=== PATIENT | male | born 1960 | race Caucasian/White ===

== ENCOUNTER 2024-05-21 08:36 | Outpatient (CLI) | payer MEDICARE, BC, SELFPAY ==
--- OUTSIDE RECORDS SUMMARY | 2024-05-21 08:42 | XMS_ITS | Continuity of Care Document ---
Author Organization [facility] Address [address] [address] [place] [address] Phone Care Team Providers Care Drafting Engineer Name Role Phone [facility] Marian ALEMAN Unavailable Unavailable Allergies, Adverse Reactions, Alerts Substance Reaction Status Criticality asparagus Active No Information verapamil Active No Information metoprolol Active No Information sildenafil Active No Information hydrocodone Active No Information erythromycin base Active No Informa tion Medications Medication Instructions Dosage Effective Dates (start - stop) Status Comments cholecalciferol (vitamin D3) 125 mcg (5,000 unit) capsule - Active amlodipine 10 mg tablet take 1 tablet by oral route every day 10 MG - Active cyclobenzaprine 10 mg tablet take 1 tablet by oral route 3 times every day 10 MG - Active epinephrine 0.3 mg/0.3 mL injection, auto-injector inject 0.3 milliliter by intramuscular route once as needed for anaphylaxis 0.3 MG - Active losartan 100 mg tablet take 1 tablet by oral route every day 100 MG - Active Zenpep 25,000 unit-79,000 unit-105,000 unit capsule,delayed release take 2 capsule by oral route 3 times every day with meals and 1 capsule with each snack swallowing whole. Do not crush, chew and/or divide. Max 8/day - Active pantoprazole 40 mg tablet,delayed release take 1 tablet by ORAL route every day 40 MG - Active Protonix 40 mg tablet,delayed release take 1 tablet (40MG) by ORAL route every day on empty stomach in the morning, 30 minutes before breakfast. You should eat something after 30-60 minutes. - Active pt is due for annual ov. fluconazole 200 mg tablet take 2 tablets PO on day one, then 1 tablet PO every day until finished - Active Creon 12,000-38,000-60,000 unit capsule,delayed release take 2 capsule by oral route 3 times every day with meals and 1 capsule with each snack 2.00 capsule - Active Zinc-220 50 mg zinc (220 mg) capsule - Active One-A-Day Men's 50 Plus 400 mcg-20 mcg-370 mcg tablet - Active acetaminophen ER 650 mg tablet,extended release take 2 tablet by oral route every 8 hours as needed swallowing whole with water. Do not break, crush, dissolve and/or chew. 1300 MG - Active albuterol sulfate 2.5 mg/3 mL (0.083 %) solution for nebulization inhale 3 milliliter by nebulization route 3 times every day 2.5 MG - Active Proair Digihaler 90 mcg/actuation aerosol powder breath act, sensor inhale 2 puff by inhalation route every 4 - 6 hours as needed 180 MCG - Active Excedrin Migraine 250 mg-250 mg-65 mg tablet - Active famotidine 20 mg tablet take 1 tablet by oral route 2 times every day 20 MG - Active doxycycline monohydrate 100 mg capsule take 1 capsule by oral route 2 times every day 100 MG - Active iron 325 mg (65 mg iron) tablet take 1 tablet by oral route 3 times every week 325 MG - Active krill oil 1,000 mg-170 mg-50 mg-80 mg capsule - Active glucosamine-chondroitin 500 mg-400 mg capsule - Active garlic 1,000 mg capsule - Ac tive rosuvastatin 20 mg tablet take 1 tablet by oral route 3 times a week - Active tizanidine 4 mg tablet take 1 tablet by oral route every day as needed not to exceed 3 doses in 24 hours 4 MG - Active topiramate 25 mg tablet take 2 tablet by oral route every day 50 MG - Active pantoprazole 40 mg tablet,delayed release take 1 tablet by ORAL route every day 40 MG - No Longer Active Zenpep 25,000 unit-79,000 unit-105,000 unit capsule,delayed release take 2 capsule by oral route 3 times every day with meals and 1 capsule with each snack swallowing whole. Do not crush, chew and/or divide. Max 8/day - No Longer Active hydrochlorothiazide 12.5 mg tablet take 1 tablet by oral route every day 12.5 MG - No Longer Active mexiletine 150 mg capsule take 2 capsule by oral route every 8 hours with food 300 MG - No Longer Active Procedures Procedure Date Offic/outpt E&m [facility] 2 24 Ugi Endo; W/bx 1/mx Level Iv-surg Path Gross/micro 23 Special Stains; Grp I Microorg 23 Offic/outpt E&m [facility] 2 23 Sigmoidoscopy Flex; W/bx 1/mx 3 Level Iv-surg Path Gross/micro 23 Offic/outpt E&m [facility] Routine Serum Collection Advance Directives Directive Yes / No Effective Date File Name No Information Encounters Encounter Description Practice Location Reason(s) For Visit Diagnoses Date Provider Providers Copied on Encounter Offic/outpt E&m [facility] Mod-[place] 2 [facility] BELKIS AL[address] [address], [place], [id number], [place] tel:[phone] [facility] GI Symptoms or Concerns (chief complaint) Gastroesophageal reflux disease, unspecified whether esophagitis presentPancreati c insufficiency 4 Rodríguez Fonseca. [address] [facility], [address], [id number], [place]. tel:[phone] Referring Provider: Referral Self, USE FOR SELF REFERRALS. [facility], [address] [address], [place], [place], [id number], [place] tel:[phone] [facility] No Information March-0 4 Luis Carlos Burgess. [address] [facility], [facility] [address] [place], [id number], [place]. tel:[phone] [facility], [address] [address], [place], [place], [id number], [place] tel:[phone] [facility] No Information Feb- 4 Luis Carlos Burgess. [address] [facility], [facility] [address], [place], [id number], [place]. tel:[phone] [facility], [address] [address], [place], [id number], [place] tel:[phone] [facility] No Information Jul- 3 Drew Buitrago. [address] [facility], [facility] [address], [place], [id number], [place]. tel:[phone] [facility], [address] [address], [place], [id number], [place] tel:[phone] [facility] Pancreatic cyst Sonny- 3 Drew Buitrago. [address] [facility], [facility] [address], [id number], [place]. tel:[phone] [facility], [address] [address], [place], [id number], [place] tel:[phone] [facility] No Information 3 Maxwell Guevara. [address] [facility], [facility] [address], [id number], [place]. tel:[phone] [facility], [address] [address], [place], [address], [place] tel:[phone] [facility] Hiatal herniaGastro-eso phageal reflux disease without esophagitisCandi rubio esophagitisDiaph ragmatic hernia without obstruction or gangrene 3 Maxwell Guevara. [address], [id number], [place]. tel:[phone] Referring Provider: Referral Self, USE FOR SELF REFERRALS. Offic/outpt E&m [facility]-[place] 2 [facility] BETY, [address] [address], [place], [place], [id number], [place] tel:[phone] [facility] GI Symptoms or Concerns (chief complaint) Abdominal bloatingChronic GERDDisease of pancreas, unspecified 3 Drew Buitrago. [address] [place] [address], [id number], [place]. tel:[phone] Referring Provider: Referral Self, USE FOR SELF REFERRALS. [facility]Y, [address] [address], [place], [place], [address], [place] tel:[phone] [facility] No Information 3 Drew Buitrago. [address], [id number], [place]. tel:[phone] [facility] BETY, [address] [address], [place], [place], [address], [place] tel:[phone] [facility] GI Symptoms or Concerns (chief complaint) Diverticulosis of colonInternal and external hemorrhoids without complicationHemo rrhage of anus and rectumHemorrhage of anus and rectumResidual hemorrhoidal skin tagsDvrtclos of lg int w/o perforation or abscess w/o bleeding 3 Isrrael Jimenes. [address], [id number], [place]. tel:[phone] Referring Provider: Referral Self, USE FOR SELF REFERRALS. Offic/outpt E&m [place] [facility]-[place] [facility] BETY, [address] [address], [place], [place], [id number], [place] tel:[phone] [facility] GI Symptoms or Concerns (chief complaint) Chronic diarrheaAbdomina l bloatingRectal bleeding Feb-0 3 Drew Buitrago. [address] [facility], [facility] [address], [place], [place], [id number], [place]. tel:[phone] Referring Provider: Referral Self, USE FOR SELF REFERRALS. [facility], [address] [address], [place], [place], [address], [place] tel:[phone] No Information Feb-0 3 No Information Referring Provider: Aimee Cade DO, [address] [place], [address]. tel:[phone] Family History Family Member Type Diagnosis Age At Onset Father Problem Stroke Mother Problem (finding) Diverticular disease Son Problem Asthma Mother Problem (finding) Pancreatitis Mother Problem Cancer, pancreas Mother Problem (finding) GERD Brother Problem (finding) GERD Sister Problem (finding) GERD Immunizations Vaccine Date Status Comments Afluria Qd administered Note: [facility] bi-directional interface ; Source: Other Registry Afluria Qd administered Note: [facility] bi-directional interface ; Source: Other Registry Afluria Qd administered Note: [facility] bi-directional interface ; Source: Other Registry Afluria Qd administered Note: [facility] bi-directional interface ; Source: Other Registry Afluria Qd administered Note: [facility] bi-directional interface ; Source: Other Registry zoster vaccine recombinant administered N ote: [facility] bi-directional interface ; Source: Other Registry zoster vaccine recombinant administered N ote: [facility] bi-directional interface ; Source: Other Registry Afluria Qd administered Note: [facility] bi-directional interface ; Source: Other Registry Afluria Qd administered Note: [facility] bi-directional interface ; Source: Other Registry Afluria Qd administered Note: [facility] bi-directional interface ; Source: Other Registry Afluria Qd administered Note: [facility] bi-directional interface ; Source: Other Registry zoster vaccine, live administered Note: [facility] bi-directional interface ; Source: Other Registry Afluria Qd administered Note: [facility] bi-directional interface ; Source: Other Registry tetanus toxoid, reduced diphtheria toxoid, and acellular pertussis vaccine, adsorbed administered Note: [facility] b i-directional interface ; Source: Other Registry Influenza, seasonal, injectable administe red Note: [facility] bi- directional interface ; Source: Other Registry Influenza, seasonal, injectable administe red Note: [facility] bi- directional interface ; Source: Other Registry Influenza, seasonal, injecta ble, preservative free administered Note: [facility] bi-direct ional interface ; Source: Other Registry influenza virus vaccine, unspecified formulation administered Note: [facility] bi-di rectional interface ; Source: Other Registry Engerix-B administered Note: [facility] bi-d irectional interface ; Source: Other Registry Influenza, seasonal, injectable administe red Note: [facility] bi- directional interface ; Source: Other Registry Engerix-B administered Note: [facility] bi-d irectional interface ; Source: Other Registry Engerix-B administered Note: [facility] bi-d irectional interface ; Source: Other Registry tetanus toxoid, reduced diphtheria toxoid, and acellular pertussis vaccine, adsorbed administered Note: [facility] b i-directional interface ; Source: Other Registry Influenza, seasonal, injectable administe red Note: [facility] bi- directional interface ; Source: Other Registry Influenza, seasonal, injectable administe red Note: [facility] bi- directional interface ; Source: Other Registry Payers Payer name Insurance type Covered constitution party ID Authoriza tion(s) Medicare NGS MB [id number] [facility] Medicare Supplement BL [id number] Social History Type Description Quantity Date Captured Comments Alcohol Use Details Unknown Caffeine Use Details Unknown Tobacco Use Status No Information Smoking Status No Information Sex Male Vital Signs Date / Time: Height Weight BMI Pulse Rate Blood Pressure Temperature Respiratory Rate Body Surface Area Head Circumference Head Circ. Percentile Wt./Sourav. Percentile BMI percentile Pulse Ox Inhaled Ox 7:28 AM 71.00 in 83.370 kg (183.80 lbs) 25.6 3 kg/m eter (2) 74 /min 134/73 mm[Hg] Chief Complaint And Reason For Visit From encounter dated '05/04/2024 07:45'. GI Symptoms or Concerns (chief complaint). Description: Keaton is a very pleasant 63 year old malewith medical history of acid reflux and small pancreatic cyst. He also has a history of frequent diarrhea.Patient was last seen in clinic by Dr. Russell in March of 2023. At this time, patient was seen for follow up regarding his frequent diarrhea, and was started on Zenpep versus Creon for pancreaticinsufficiency. Patient had also noted that he was not taking a PPI for GERD, and that his symptoms were not well managed with sucralfate and famotidine, thus he was switched to pantoprazole.Prior work up for diarrhea includes.-negative celiac testing, normal fecal calprotectin-EGD at [facility] in January 2023 which showed diverticulitis, internal hemorrhoids, mildly tortuous colon, had flex sig with [facility] with normal biopsies in 2022-Pancreatic Lipase Low at 60 in 2022, as well as stool pH of 7.0 -MRI April 2023 showing pancreatic cyst, follow up MRCP in January 2024 demonstrated the cyst was stable, and no follow up was recommended by radiologyToday, patient notes that he is overall doing quite well. He has no symptoms of acid reflux or heart burn on the Pantoprazole daily. He has very rarediarrhea on the Zenpep. He notes that he sometimes stops taking the Zenpep, but then the next day will have diarrhea. He also is normally taking it twice a day, as he usually only has 2 meals per day. He has a history of smoking and of alcohol use, but no longer drinks or smokes cigarettes. Reason For Referral Reason For Referral No Information Plan Of Treatment Date Type Action Status Referral Ordered: EGD Appointment date/timeframe: 04/07/2023 ordered Referral Ordered: MRI Pancreas WITH Contrast Appointment date/timeframe: 04/30/2023 ordered Referral Ordered: MRCP Biliary/Pancreatic Ducts WITHOUT And WITH Contrast Appointment date/timeframe: 04/30/2023 ordered Referral Ordered: Flexible Sigmoidoscopy Appointment date/timeframe: 02/24/2023 ordered History Of Present Illness Encounter Date Complaint History Of Prese nt Illness GI Symptoms or Concerns Keaton is a very pleasant 63 year old male with medical history of acid reflux and small pancreatic cyst. He also has a history of frequent diarrhea.Patient was last seen in clinic by Dr. Russell in March of 2023. At this time, patient was seen for follow up regarding his frequent diarrhea, and was started on Zenpep versus Creon for pancreatic insufficiency. Patient had also noted that he was not taking a PPI for GERD, and that his symptoms were not well managed with sucralfate and famotidine, thus he was switched to pantoprazole.Prior work up for diarrhea includes.-negative celiac testing, normal fecal calprotectin-EGD at [facility] in January 2023 which showed diverticulitis, internal hemorrhoids, mildly tortuous colon, had flex sig with [facility] with normal biopsies in 2022-Pancreatic Lipase Low at 60 in 2022, as well as stool pH of 7.0 -MRI April 2023 showing pancreatic cyst, follow up MRCP in January 2024 demonstrated the cyst was stable, and no follow up was recommended by radiologyToday, patient notes that he is overall doing quite well. He has no symptoms of acid reflux or heart burn on the Pantoprazole daily. He has very rare diarrhea on the Zenpep. He notes that he sometimes stops taking the Zenpep, but then the next day will have diarrhea. He also is normally taking it twice a day, as he usually only has 2 meals per day. He has a history of smoking and of alcohol use, but no longer drinks or smokes cigarettes. GI Symptoms or Concerns 62-year- old male patient who presents for follow-up for chronic diarrhea ( 2-3 years). We initially saw the patient on 02/21/2023 when he reported having 3-5 bowel movements with urgency on daily basis. He did have a CT scan of the abdomen and pelvis more than 5 years ago that was done for evaluation of acholic stool, which was unremarkable. He did have a colonoscopy around January of [address] Owen at [facility], and this reported diverticulosis, small internal hemorrhoids, mildly tortuous colon. We referred him for a flexible sigmoidoscopy which was done on 02/24/2023, and random biopsies were normal. Celiac serology was normal, fecal calprotectin was normal, and his pancreatic lipase was low at 60. Stool pH was normal at 7.0. We started him on Creon, with resolution of his diarrhea. He reported having chills with the use of Creon therefore he decreased it to 1 capsule with meals. Stool testing for infection was unremarkable. He reports that he did have a severe pancreatic infection in early with no details available. He also mentioned that he smoked about 1.5 pack per day between 1998 and 2006. He also mentioned drinking 2-3 beers a day between 1994 and 1999. Mother with history of pancreatic cancer. Sister with history of pancreatic problem. Denies constitutional symptoms. Patient reports that he has had chronic GERD that has been poorly controlled with sucralfate and famotidine. He was not trialed on PPI in the past. He reports that his last EGD was more than 10 years ago. No dysphagia or odynophagia. GI Symptoms or Concerns GI Symptoms or Concerns Keaton is a 62-year-old male patient who was referred for consultation by Dr. Aimee Cade for evaluation of chronic diarrhea and hematochezia. The patient reports that he was in his usual state of health until 2 years ago when he started to have diarrhea. He reports 3 to 5 bowel movements a day, light brown in color, with intermittent urgency. He did have a CT scan of the abdomen and pelvis more than 5 years ago, which I was able to find on his records in [facility], and that was done to evaluate for acholic stools, and that was unremarkable. He reports that he did have a colonoscopy within the past month with Dr. Owen at [facility], and he was told that he has nothing. On the review of the report of colonoscopy at [facility], it was noted that he has diverticulosis, small internal hemorrhoids, mildly tortuous colon, otherwise unremarkable exam.He reports daily bloating symptoms, he reports that he takes doxycycline on a daily basis for the past 4 years for rosacea. Denies any new Functional Status Date Functional Assessmen t No Information Medications Administered Medication Instructions Dosage Effective Dates (start - stop) Status Comments pantoprazole 40 mg tablet,delayed release take 1 tablet by ORAL route every day 40 MG - No Longer Active Instructions Date Instruction Additional Infor dilcia It was a pleasure to meet you!-I have sent in years refills of Zenpep and Pantoprazole -Please call if any questions or concerns, but then follow up in one year for refillsPlease feel free to reach out to me through the patient portal, or via my patient coordinator, Abbey @ [phone] ext. [phone] Related to Pancreatic insufficiency Diverticulosis/Diverticulitis Re lated to Diverticulosis of colon Hemorrhoids (External) Related t o Diverticulosis of colon Hemorrhoids (Internal) Related t o Diverticulosis of colon High Fiber Diet Related to Diver ticulosis of colon 1. Blood tests for c eliac disease today.2. Stool testing for calprotectin, pH, pancreatic elastase, and infectious workup.3. Refer for flexible sigmoidoscopy with biopsies to rule out microscopic colitis and to evaluate for the source of bleeding, specifically with internal or external hemorrhoids.4. Follow up in 1 month. We will consider further testing including upper endoscopy and capsule endoscopy.5. Given recommendations for low fructose diet to trial.6. Less likely SIBO as he is on daily doxycycline.7. He has follow up with Neurology next week. Advised to discuss if there is any other option for management of the migraines given his chronic Excedrin use.I spent a total of 60 minutes in reviewing outside records, care coordination, test ordering, [id number] clinical encounter, and dictation. Related to Chronic diarrhea Fructose Intolerance Diet Relate d to Abdominal bloating Assessments Type Assessment Date assessment Gastroesophageal ref lux disease, unspecified whether esophagitis present assessment Pancreatic insufficiency 2023 impression 63 year old male wit h medical history of acid reflux and small pancreatic cyst. He also has a history of frequent diarrhea.History of Pancreatic Insufficiency/Hx of Pancreatic Cyst:Diarrhea resolved after starting Zenpep. He has tried to wean off of this, but does notice that the diarrhea returns shortly after stopping. No further work up needed, per radiology for pancreatic cyst based on MRCP in January 2024. Refills for one year of Zenpep.Hx of GERD: After starting daily PPI in 2022 (versus on H 2 [place]) his symptoms of acid reflux and heartburn have resolved. Patient had a colonoscopy with [facility] in 2022, as well as a flex sig with [facility] (with biopsies) that year as well. Normal other than diverticulosis, small internal hemorrhoid, and mildly tortuous colon. Recall would be in 10 years. GERD: Patient Care Teams Name Effective Dates (start - stop) Status Members No Information
--- OUTSIDE RECORDS SUMMARY | 2024-05-21 08:42 | XMS_ITS | Clinical Summary ---
Author Organization [employer] [facility] Address [place], [place] [address] Care Team Providers Care Clinical Exercise Specialist Name Role Phone Mason Owen MD Unavailable [phone] Huber Martinez MD Unavailable [phone] Yessica Zelaya NP Unavailable Aimee Cade DO Primary Care Provider Ciro Funez MD Unavailable Allergies Active Allergy Reactions Criticality Noted Date Comments Asparagus Anaphylaxis,Vomiting High 08/14/2023 Erythromycin Rash Hydrocodone *Unknown Low 09/21/2019 Metoprolol Chest Pain,Hypertension,Wheez ing 03/14/2011 BP got up to 298/160 per pt. Sildenafil Hyperglycemia 01/15/2007 Verapamil Other - Describe In Comment Field 10/15/2016 Hypertensive response Hydrocodone-Acetaminop hen Itching,Insomnia Medications Medication Sig Dispensed Refills Start Date End Date Status medication order composerIndications :DDD (degenerative disc disease), cervical,Cervical myofascial pain syndrome TENS unit : Cervical pain & thoracic pain. D.D.D.; history of poly trauma. 1 Device 7 Active albuterol (PROVENTIL) 0.083 % neb solutionIndications :Mild intermittent asthma without complication,Bronch iectasis without complication (HC) Inhale 3 mL via a nebulizer every 4 hours if needed. 2 box 5 0 Active NebulizerIndication s:Mild intermittent asthma without complication,Bronch iectasis without complication (HC) Nebulizer, disposable neb kit. Frequency of use: Every 4 hours as needed, Medication: Albuterol, length of need:99 months 1 Device 0 Active topiramate (TOPAMAX) 25 mg tabletIndications:M igraine with aura, not intractable, without status migrainosus Take 2 tablets by mouth 2 times daily. 0 0 Active acetaminophen SR (Tylenol 8 Hour) 650 mg Extended-Release tabletIndications:G eneralized osteoarthritis,Prim franklyn osteoarthritis of both knees Take 2 Tablets (1,300 mg) by mouth every 8 hours if needed. Max acetaminophen dose: 4000mg in 24 hrs. 0 1 Active albuterol HFA (PRO-AIR; VENTOLIN; PROVENTIL) 90 mcg/actuation inhalerIndications: Cough,Bronchitis Inhale 1-2 Puffs by mouth every 4 hours if needed (cough). 1 Each 2 Active Zenpep 25,000-79,000- 105,000 unit cpDR 3 Active losartan (COZAAR) 100 mg tabletIndications:H TN (hypertension) Take 1 Tablet (100 mg) by mouth once daily. 90 Tablet 3 3 Active EPINEPHrine (EpiPen) 0.3 mg/0.3 mL auto-injectorIndica tions:Food allergy Inject 0.3 mg (1 Pen) intramuscular each time if needed for Allergic Reaction. 2 Each 3 3 Active cyclobenzaprine (FLEXERIL) 10 mg tabletIndications:C hronic midline thoracic back pain,Muscle spasm TAKE ONE TABLET BY MOUTH THREE TIMES A DAY NEEDED FOR MUSCLE SPASMS 90 Tablet 3 Active amLODIPine (NORVASC) 10 mg tabletIndications:H TN (hypertension) Take 1 Tablet (10 mg) by mouth once daily. 90 Tablet 3 4 Active famotidine (PEPCID) 20 mg tabletIndications:G astroesophageal reflux disease with esophagitis,Acute gastric ulcer without hemorrhage or perforation TAKE ONE TO TWO TABLETS BY MOUTH EVERY DAY NEEDED 180 Tablet 1 4 Active pantoprazole (PROTONIX) 40 mg delayed-release tablet Take 40 mg by mouth once daily before a meal. 4 Active doxycycline monohydrate (MONODOX) 100 mg capsuleIndications: Acne rosacea TAKE ONE CAPSULE BY MOUTH TWICE DAILY 180 Capsule 2 4 Active rosuvastatin (CRESTOR) 20 mg tabletIndications:V BI (vertebrobasilar insufficiency) TAKE ONE TABLET BY MOUTH EVERY DAY WITH EVENING MEAL 90 Tablet 2 4 Active medication order composerIndications :Chronic fatigue OneADay Men's 50+ MVI - 1 capsule daily in AM Krill Oil 1200mg (krill oil 1200mg, phospholipids 230mg, omega-3 fatty acid 175mg, EPA 74ma, DHA 48mg, astaxanthin 240mg) - 1 softgel twice a day Liane Feerasorb 65mg - 1 tablet Turmeric Curcumin Complex 500mg (contains black pepper) - 1 capsule in the evening Jones Copper 2 mg - 1 tablet daily Jones Zinc Gluconate 50 mg - 1 capsule daily Jones Triple Magnesium Complex 400mg (magnesium oxide, citrate, aspartate) - 1 capsule daily once completed start Vital Nutrients Triple Mag 500mg: Daily Red [place] Garlic 1000 mg - 2 softgel twice a day [place] Glucosamine Chondroitin MSM & Tumeric 4050mg- BID Traditionals [place] Dispersing formula: 5 capsules Daily - prescribe through industrial order clerk for lung function CoQ10 200mg: Daily 4 Active cholecalciferol, Vitamin D3, 5,000 unit tab tabletIndications:V itamin D deficiency Take 5,000 IU once daily with food. 90 Tablet 1 4 Active metoclopramide HCl (Reglan) 10 mg tablet Take 0.5 Tablets (5 mg) by mouth every 6 hours if needed for Nausea/Vomiting. 4 Active cholecalciferol, Vitamin D3, 5,000 unit tab tabletIndications:V itamin D deficiency Take 10,000 IU (2 tablets) once daily with food x 6 weeks. Recheck vitamin D levels at that time and adjust supplement dose accordingly. This information will be sent through medical messaging. 90 Tablet 4 05/10/20 24 Discontinu ed(Reorder (E-cancel not sent)) Hospital, Clinic, or Other Facility Administered Medication Ordered Dose Route Frequency Start Date End Date Status ketorolac 15 mg injection (TORADOL)Indications:Acute intractable headache, unspecified headache type 15 mg IV ONE TIME 05/12/2024 05/12/2024 Ended ondansetron 4 mg injection (ZOFRAN)Indications:Acute intractable headache, unspecified headache type 4 mg IV ONE TIME 05/12/2024 05/12/2024 Ended Active Problems Problem Noted Date Diagnosed Date Pancreatic cyst 12/30/2023 Overview: Found on MRI pancreas April 2023 with [facility] Advised to repeat scan Oct 2023 Pancreatic insufficiency 12/30/2023 Foraminal stenosis of lumbar region 11/13/2022 Overview: Per 03/2022 MRI Neck pain, chronic 08/06/2021 Frequent PVCs 03/08/2021 Dyslipidemia 03/08/2021 PSVT (paroxysmal supraventricular tachycardia) 0 06/14/2020 Overview: Extended Holter monitor on 06/02/2020 Apical myocardial infarction 05/02/2020 Overview: On Lexiscan 05/02/20 Normal cardiac MRI on 06/06/2020 Chest pressure 04/20/2020 Weight loss 04/20/2020 Hypokalemia 04/20/2020 Chronic renal disease, stage 3, moderately decreased glomerular filtration rate (GFR) between 30-59 mL/min/1.73 square meter 04/20/2020 VBI (vertebrobasilar insufficiency) 07/20/2019 Generalized osteoarthritis 05/27/2019 Primary osteoarthritis of both knees 09/24/2018 Overview: 1994 left anterior cruciate ligament Surgery and several meniscal Surgeries on right knee. Previous injections. October 2018: Dr. Ge did bilateral Synvisc ONE injections. Chronic midline low back pain with bilateral sci atica 03/11/2018 Chronic maxillary sinusitis 06/02/2017 Insomnia, idiopathic 06/02/2017 Thyroid nodule 03/24/2017 Overview: Surgically removed - B9 H/O Meniere's disease 01/15/2017 Overview: assoc. w/ tinnitus. Lumbar facet arthropathy 10/15/2016 Overview: Multilevel per MRI from 06/02/15 Lumbar disc herniation 10/15/2016 Overview: Per MRI on 06/02/15 Mild intermittent asthma without complication Migraine with aura, not intr actable, without status migrainosus 04/19/2016 Chronic tension-type headache, not intractable 0 04/19/2016 Allergic rhinitis 04/19/2016 Rosacea 11/24/2015 Anxiety 10/20/2015 Moderate episode of recurrent major depressive d isorder 10/20/2015 [place] 04/25/2015 AHI-7, supine 27 05/18/2015 Foraminal stenosis of cervical region 04/28/2015 Cervical myofascial pain syndrome 04/28/2015 Vasomotor rhinitis 11/30/2014 GERD (gastroesophageal reflux disease) 5 Overview: EGD 11/2014 Reactive gastropathy Diverticulosis of colon (without mention of hemo rrhage) 01/26/2014 Overview: Colonoscopy 01/2014 diverticulosis, NSAID ileitis repeat in 10 years Bronchiectasis without complication 09/19/2010 Essential hypertension 08/21/2010 Screen for colon cancer 07/21/2009 Overview: Colonoscopy 07/2009 normal repeat in 10 years Colonoscopy 01/2014 diverticulosis repeat in 10 years Mixed hyperlipidemia 06/29/2009 Compression Fracture of 9th Thoracic Vertebra Variants of migraine, not el sewhere classified, without mention of intractable migraine without mention of status migrainosus 06/07/2008 Overview: With L hemiplegia Hemiplegia, unspecified, affecting unspecified s riya 06/03/2008 Overview: Due to migraine vriant-05/24 Closed fracture of dorsal (t horacic) vertebra without mention of spinal cord injury 01/05/2008 Overview: 2003 Calculus of kidney Scoliosis (and kyphoscoliosis), idiopathic Resolved Problems Problem Noted Date Diagnosed Date Resolved Date Need for hepatitis C screening test 09/06/2019 04/20/2020 Intractable chronic cluster headache 04/19/2016 09/06/2019 Gastric ulcer, acute 04/19/2016 020 DDD (degenerative disc disease), cervical 04/28/2015 04/20/2020 Facet arthritis of cervical region 04/28/2015 04/20/2020 Gastric ulcer, acute 01/24/2012 015 Overview: EGD 01/2012 superficial ulcers, H. Pylori negative DIABETES TYPE II WITHOUT COM PLICATIONS OR UNSPECIFIED 12/02/2002 02/28/2009 Overview: gone since he stopped Viagra Unspecified asthma(493.90) 0 04/20/2020 Pain in limb 04/20/2020 Overview: Meniscal tear-R Knee-2007 Pain in limb 04/20/2020 Overview: herniated lumbar disc with radiculopathy Encounters Date Type Department Care Team Description 05/14/2024 9:00 AM CDT Procedure Only [facility] [address] [facility] [address] [place] [address] Anahi Kelsey L Ac Acupuncture 05/12/2024 11:25 AM CDT Office Visit [facility] [address] [place] [address] Aimee Cade, DO ER Follow up (Fell down stairs 03/25/24 - loss of consciousness, L ear/hearing decline, headache L side, L eye talamantes constantly) 05/12/2024 Travel 05/11/2024 Telephone [facility] [address] [place] [address] Aimee Cade, DO Questions 05/10/2024 11:20 AM CDT - 05/10/2024 1:[address] [facility] [address] [place] [address] Kvng Gonzalez MD Injury of head, initial encounter (Primary Dx); Intractable headache, unspecified chronicity pattern, unspecified headache type Discharge Disposition: Home Self Care 05/10/2024 Travel 05/10/2024 Nurse Triage [facility] [address] [place] [address] Aimee Cade, DO Headache 05/10/2024 Refill [facility] [address] [place] [address] Karuna Mcdonough PA Refill Request (VITAMIN D3 [id number]) 05/06/2024 12:40 PM CDT Orders Only [facility] [address] [facility] [address] [place] [address] Lab (/) 05/06/2024 11:00 AM CDT Office Visit [facility] [address] [facility] [address] [place] [phone] Igor Momin MD Consult (Cough Evaluation) 05/05/2024 Travel 04/30/2024 9:00 AM CDT Procedure Only [facility] [address] [place] [address] [address] [place] [address] Anahi Kelsey L Ac Acupuncture 04/30/2024 Travel 04/16/2024 9:00 AM CDT Procedure Only [facility] [address] [place] [address] [address] [place] [address] Anahi Kelsey L Ac Acupuncture 04/02/2024 9:00 AM CDT Procedure Only [facility] [address] [place] [address] [address] [place] [address] Anahi Kelsey L Ac Acupuncture 03/31/2024 9:00 AM CDT Office Visit [facility] [address] [place] [address] Karuna Mcdonough PA Follow Up 03/31/2024 Travel 03/29/2024 Travel 03/26/2024 7:15 AM CDT Orders Only [facility] [address] [place] [address] [place], [place] Lab 03/25/2024 Travel 03/19/2024 9:30 AM CDT Procedure Only [facility] [address] [facility] [address] [place] [address] Anahi Kelsey L Ac Acupuncture 03/05/2024 9:00 AM CDT Procedure Only [facility] [address] [facility] [address] [place] [address] Anahi Kelsey L Ac Acupuncture 03/02/2024 10:00 AM CDT Office Visit [facility] [address] [facility] [address] [place] [phone] Huber Martinez MD Follow Up (in person/3 month follow-up per Dr. Martinez/Nisha PCP/no cards); Concerns (Patient denies CP, SOB and dizziness. Patient states that he has missing beat and will get some dizziness with it. ); Refill Request (See pending orders for refill requests. ) 03/02/2024 Travel 02/26/2024 Refill [facility] [address] [place] [address] Aimee aCde DO Refill Request (Rosuvastatin) from Last 3 Months Immunizations Name Administration Dates Next Due Hepatitis B (Adult) 10/24/2006,05/27/2006,2005 Influenza Virus, Unspecified 08/30/2009 Influenza, IIV3 (Age >=3 years) 08/23/20 15,10/01/2013,09/30/2012,2003,08/30/2004,09/06/2003,05/12/2002,1 ,09/17/1998,11/23/1997, 997,09/18/1996,09/04/1995,09/13/1994,,09/14/1992 Influenza, IIV4 08/16/2022,,09/08/2020,2018,09/14/2018,08/28/2017,09/11/2016,1 ,08/02/2014,08/03/2013 Pneumococcal Poly,23-Valent (Pneumovax) 09/18/1996 Td (Age >=7 Years) 12/17/1995 Tdap 08/03/2013,04/17/2006 Zoster (Shingrix-RZV, recombinant) 06/03/2018, Zoster (Zostavax-ZVL, live) 01/13/2014 Family History Medical History Relation Name Comments Stroke Father d 70 yo Other Maternal Grandfather stomach CA/pancreatitis Other Maternal Grandmother CVA and CA -unknown type Cancer Mother d at 88 pancrea tic CA Asthma Son Relation Name Status Comments Father Maternal Grandfather Maternal Grandmother Mother Son Social History Tobacco Use Types Packs/Day Years Used Date Smoking Tobacco: Former Cigarettes 1 7 0 07/21/2000 - 07/21/2007 Smokeless Tobacco: Never Tobacco Cessation:Counseling Given: Yes Alcohol Use Standard Drinks/Week Comments Yes 0 (1 standard drink = 0.6 oz pur e alcohol) very rarely PHQ-2 Answer Date Recorded PHQ-2 TOTAL SCORE 0 02/18/2023 Social Connections Answer Date Recorded Frequency of Communication with Friends and Fami ly Not on file 04/25/2024 Financial Resource Strain Answer Date R ecorded Difficulty of Paying Living Expenses 3 04/24/2023 Difficulty of Paying Living Expenses Not on file 04/24/2023 Food Insecurity Answer Date Recorded Worried About Running Out of Food in the Last Ye ar 1 04/24/2023 Transportation Needs Answer Date Record ed Lack of Transportation (Medical) 1 04/24/2023 Housing Stability Answer Date Recorded Unable to Pay for Housing in the Last Year 1 04/24/2023 Sex and Gender Information Value Date Recorded Sex Assigned at Not on file Gender Identity Not on file Sexual Orientation Not on file Obstetrics History Last Filed Vital Signs Vital Sign Reading Time Taken Comments Blood Pressure 119/78 05/12/2024 1:19 PM CDT Pulse 59 05/12/2024 1:19 PM CDT Temperature 36.7 ??C (98.1 ??F) 05/10/2024 11:32 AM C DT Respiratory Rate 20 05/10/2024 11:32 AM CDT Oxygen Saturation 98% 05/12/2024 11:38 AM CDT Inhaled Oxygen Concentration - - Weight 83 kg (183 lb) 05/12/2024 11:38 AM CDT Height 180.3 cm (5' 11) 05/10/2024 11:31 AM CDT Body Mass Index 25.52 05/10/2024 11:31 AM CDT Plan of Treatment Upcoming Encounters Date Type Department Care Team (Late st Contact Info) Description 05/26/2024 1:45 PM CDT Orders Only [facility] [address] [facility] [address] [place] 05/28/2024 9:00 AM CDT Procedure Only [facility] [address] [facility] [address] [place] [phone] Anahi Kelsey L [address] [facility] [place] [address] 05/31/2024 7:15 AM CDT Ancillary Procedure [facility] [address] [place] [address] 06/01/2024 9:40 AM CDT Office Visit [facility] [address] [address] Megha Bloom MD [address] [address] 06/02/2024 1:00 PM CDT Office Visit [facility] [address] [place] [address] Karuna Mcdonough PA [address] [place] [address] 06/04/2024 12:00 PM CDT Appointment [facility] [address] [place] [address] 06/11/2024 9:00 AM CDT Procedure Only [facility] [address] [facility] [address] [place] [phone] Anahi Kelsey, Kate Ac [address] [place] [address] 06/11/2024 12:55 PM CDT Office Visit [facility] [address] [place] [address] Aimee Cade, DO [address] [place] [address] 10/19/2024 12:30 PM [employer] Office Visit [facility] [address] [place] [phone] Igor Momin MD [address] [place] [address] Health Maintenance Due Date Last Done Comments COVID-19 vaccine series (#1) 1965 Pneumococcal series for age 65+ (2 of 2 - PCV) 09/18/1997 09/18/1996 Tetanus booster 08/03/2023 08/03/2013, 0611/2005, 12/17/1995 Medicare Wellness for age 65+ 2023 09/06/2019 Depression screening for age 12+ 02/19/2024 02/18/2023, 11/23/2020, 11/21/2020, Additional history exists Influenza for age 65+ 07/18/2024 08/16/2022 , 08/13/2021, 09/08/2020, Additional history exists BMI (ht and wt on same day) for age 18+ 05/06/2025 05/06/2024, 02/05/2024, 12/22/2023, Additional history exists Lipids for age 45-75 03/26/2029 03/26/2024, 02/18/2023, 11/13/2022, Additional history exists Colonoscopy through age 75 01/14/203301/14, 01/14/2023, 01/14/2023, Additional history exists Tdap Completed 08/03/2013, 04/17/2006 Zoster (shingles) series for age 50+ Completed 06/03/2018, 03/11/2018, 01/13/2014 HIV for age 15-65 Completed 04/20/2020, 01/10/2014 Hepatitis C screening for ag e 18-79 Completed 04/20/2020, 09/06/2019 AAA screening age 65-74 Completed 12/10/2023, 11/24 Goals Goal Patient Goal Type Associated Problems Recent Progress Patient-Stated? Author BLOOD PRESSURE - Maintains BP less than 130/80 Blood Pressure On track( 3:30 PM CDT) No Kia Rose, RN Note: 112/79, 120/76, 123/79 some of patient's blood pressure readings over the last couple of weeks. MIAN Khoury.....06/09/2020 3:31 PM Other - Free Text General On track( 3:33 PM CDT) Yes Kia Rose, RN Note: No issues during this phone visit regarding knee issues. MIAN Khoury.....06/09/2020 3:34 PM QUALITY OF LIFE - Patient will define what quality of life means to them General Not on track( 3:34 PM CDT) No Kia Rose RN Note: Patient is frustrated regarding lack of care, for recent health issues. Assisted patient in scheduling a OV with PCP to discuss further. Patient was agreeable to an OV. MIAN Khoury.....06/09/2020 3:35 PM Manage Stress, Depression, or Anxiety General Worsening( 3:32 PM CDT) No Kia Rose RN Note: Patient feels COVID has affected his mental/physical ability to receive the care he needs. MIAN Khoury.....06/09/2020 3:33 PM Procedures Procedure Name Priority Date/Time Associated Diagnosis Comments CT HEAD BRAIN WO STAT 05/10/2024 12:1 0 PM CDT IGG Routine 05/06/2024 11:45 AM CDT Pancreatic insufficiency Recurrent upper respiratory infection (URI) Cough, unspecified type Dyspnea, unspecified type Bronchiectasis without complication (HC) IMMUNOGLOBULIN E,IGE Routine 05/06/2024 11:45 AM CDT Pancreatic insufficiency Recurrent upper respiratory infection (URI) Cough, unspecified type Dyspnea, unspecified type Bronchiectasis without complication (HC) IGA Routine 05/06/2024 11:45 AM CDT Pancreatic insufficiency Recurrent upper respiratory infection (URI) Cough, unspecified type Dyspnea, unspecified type Bronchiectasis without complication (HC) IGM Routine 05/06/2024 11:45 AM CDT Pancreatic insufficiency Recurrent upper respiratory infection (URI) Cough, unspecified type Dyspnea, unspecified type Bronchiectasis without complication (HC) IGG SUBCLASSES(1-4) Routine 05/06/2024 1 1:45 AM CDT Pancreatic insufficiency Recurrent upper respiratory infection (URI) Cough, unspecified type Dyspnea, unspecified type Bronchiectasis without complication (HC) LIPID PANEL W REFLEX MEASURED LDL Routine 03/26/2024 7:10 AM CDT PSVT (paroxysmal supraventricular tachycardia) (HC) Primary hypertension VITAMIN D 25 (DEFICIENCY) Routine 03/26/2024 7:10 AM CDT Vitamin D deficiency CBC W PLT NO DIFF Routine 03/26/2024 7:1 0 AM CDT Rectal bleeding Normocytic anemia US ABD AORTA SCREENING Routine 12/10/2023 7:42 AM [employer] Screening for AAA (abdominal aortic aneurysm) COLONOSCOPY DIAGNOSTIC Routine 01/14/2023 2:50 PM [employer] Hematochezia ANTI HIV 1/2 Today 04/20/2020 4:08 PM CDT Weight loss ANTI HCV Today 04/20/2020 4:08 PM CDT Weight loss from Last 3 Months or Most Recently Relevant to Health Maintenance Results * CT HEAD BRAIN WO (05/10/2024 12:10 PM CDT) Anatomical Region Laterality Modality HEAD, BRAIN Computed Tomogra phy 05/10/2024 12:3 8 PM CDT Impressions 05/10/2024 12:38 PM CDT 1. Normal intracranial contents. 2. Mild scattered paranasal sinus mucosal thickening. Please note that all CT scans at this facility use dose modulation, iterative reconstruction, and/or weight-based dosing when appropriate to reduce radiation dose to as low as reasonably achievable. Dictated by Andreia Andujar MD @ 05/10/2024 12:38:53 PM (Electronically Signed) Narrative 05/10/2024 12:38 PM CDT For Patients: ??As a result of the Cures Act, medical imaging exams and procedure reports are released immediately into your electronic medical record. ??You may view this report before your referring provider. ??If you have questions, please contact your health care provider. INDICATION: Head injury with persistent left headache. COMPARISON: MR brain 07/16/2019, CT head 07/16/2019 TECHNIQUE: CT of the brain / head without intravenous contrast. Multiplanar axial, coronal, and sagittal reformats were reconstructed. FINDINGS: No intracranial hemorrhage. Normal appearance of the white matter. No acute or subacute cortically based infarct. No mass or mass effect. Normal ventricles. No skull fractures. No worrisome focal bone lesion. Mild scattered paranasal sinus mucosal thickening. Procedure Note Andreia Andujar MD - 05/10/2024 For Patients: As a result of the Cures Act, medical imagingexams and procedure reports are released immediately into your electronicmedical record. You may view this report before your referring provider.If you have questions, please contact your health care provider. INDICATION: Head injury with persistent left headache. COMPARISON: MR brain 07/16/2019, CT head 07/16/2019 TECHNIQUE: CT of the brain / head without intravenous contrast. Multiplanar axial,coronal, and sagittal reformats were reconstructed. FINDINGS: No intracranial hemorrhage. Normal appearance of the white matter. No acute or subacute corticallybased infarct. No mass or mass effect. Normal ventricles. No skull fractures. No worrisome focal bone lesion. Mild scattered paranasal sinus mucosal thickening. IMPRESSION: 1. Normal intracranial contents. 2. Mild scattered paranasal sinus mucosal thickening. Please note that all CT scans at this facility use dose modulation,iterative reconstruction, and/or weight-based dosing when appropriate toreduce radiation dose to as low as reasonably achievable. Dictated by Andreia Andujar MD @ 05/10/2024 12:38:53 PM (Electronically Signed) Kvng Gonzalez MD CT * IGG SUBCLASSES(1-4) (05/06/2024 11:45 AM CDT) IgG 758 603 - 1613 mg/dL 05/10/2024 7:07 PM CDT FOR ESOTERIC TESTING (CET) IgG Subclass 1 306 248 - 810 mg/dL 05/10/2024 7:[address] [facility] ESOTERIC TESTING (CET) IgG Subclass 2 262 130 - 555 mg/dL 05/10/2024 7:07 PM CDT FOR ESOTERIC TESTING (CET) IgG Subclass 3 37 15 - 102 mg/dL 05/10/2024 7:[address] [facility] ESOTERIC TESTING (CET) IgG Subclass 4 32 2 - 96 mg/dL 05/10/2024 7:[address] [facility] ESOTERIC TESTING (CET) Blood BLOOD SPECIMEN / Unknown Venipuncture / Unknown 05/06/2024 11:45 AM CDT 05/06/2024 11:45 AM CDT Narrative FOR ESOTERIC TESTING (CET) - 05/10/2024 7:07 PM CDT Performed at: ??01 - [address] ??[id number] Chlorobutadiene Scrubber Operator: Spike Sharma MD, Phone: ??[phone] Performed at: ??02 - [facility] [place] [address] [place], [place] ??[id number] Chlorobutadiene Scrubber Operator: Andre Ku MD, Phone: ??[phone] Igor Momin MD [facility] FOR ESOTERIC TEST[facility] (CET) [address] [place] [address], [place] * IGA (05/06/2024 11:45 AM CDT) IGA 96.22 84.50 - 499.00 mg/dL 05/07/2024 10:33 AM CDT [facility] Blood BLOOD SPECIMEN / Unknown Venipuncture / Unknown 05/06/2024 11:45 AM CDT 05/06/2024 11:45 AM CDT Igor Momin MD CHEMISTRY Performing Organization Address City/[facility]/ZIP Co de Phone Number [facility] [address] [phone], [place] * IGM (05/06/2024 11:45 AM CDT) IGM 42.59 35.00 - 242.00 mg/dL 05/07/2024 10:33 AM CDT [facility] Blood BLOOD SPECIMEN / Unknown Venipuncture / Unknown 05/06/2024 11:45 AM CDT 05/06/2024 11:45 AM CDT Igor Momin MD CHEMISTRY [facility] [address] [place] [address], [place] * IGG (05/06/2024 11:45 AM CDT) IGG 659.43 610.30 - 1,616.00 mg/dL 05/07/2024 10:33 AM CDT [facility] Blood BLOOD SPECIMEN / Unknown Venipuncture / Unknown 05/06/2024 11:45 AM CDT 05/06/2024 11:45 AM CDT Igor Momin MD CHEMISTRY Performing Organization Address City/[facility]/ZIP Co de Phone Number [facility] [address] [place] [address], * (ABNORMAL) IMMUNOGLOBULIN E,IGE (05/06/2024 11:45 AM CDT) IMMUNOGLOBULIN E (IGE) 4.2(L) 22.0 - 107.0 kU/L 05/07/2024 2:00 PM CDT [facility] Blood BLOOD SPECIMEN / Unknown Venipuncture / Unknown 05/06/2024 11:45 AM CDT 05/06/2024 11:45 AM CDT Igor Momin MD CHEMISTRY Performing Organization Address [facility] Co de Phone Number [facility] [address] [place] [address], * (ABNORMAL) LIPID PANEL W REFLEX MEASURED LDL (03/26/2024 7:10 AM CDT) CHOLESTEROL,TOTAL 112 100 - 199 mg/dL 03/26/2024 2:45 PM CDT [facility] Comment: Cholesterol, Total Reference Ranges Desirable <200 mg/dL Borderline 200-239 mg/dL High >=240 mg/dL TRIGLYCERIDES 99 <150 mg/dL 03/26/2024 2:45 PM CDT [facility] HDL CHOLESTEROL 40(L) >40 mg/dL 2:45 PM CDT [facility] NON-HDL CHOLESTEROL 72 <145 mg/dl 03/26/2024 2:45 PM CDT [facility] CHOL/HDL RATIO 2.80 <4.50 03/26/2024 2:45 PM CDT [facility] LDL CHOLESTEROL 52 <=130 mg/dL 03/26/2024 2:45 PM CDT [facility] VLDL CHOLESTEROL 20 <=30 mg/dL 03/26/2024 2:45 PM CDT [facility] PROVIDER ORDERED STATUS FASTING 03/26/2024 2:45 PM CDT [facility] Blood BLOOD SPECIMEN / Unknown Venipuncture / Unknown 03/26/2024 7:10 AM CDT 03/26/2024 7:11 AM CDT Huber Martinez MD CHEMISTRY Performing Organization Address [facility] Co de Phone Number [facility] [address] [place] [address], * VITAMIN D 25 (DEFICIENCY) (03/26/2024 7:10 AM CDT) VITAMIN D TOTAL 28.1 20.0 - 80.0 ng/mL 03/26/2024 2:45 PM CDT [facility] Blood BLOOD SPECIMEN / Unknown Venipuncture / Unknown 03/26/2024 7:10 AM CDT 03/26/2024 7:11 AM CDT Narrative [facility] - 03/26/2024 2:45 PM CDT ? Vitamin D Status Deficiency: ? <20 ng/mL Insufficiency: ?20-29 ng/mL Sufficiency: ?30-80 ng/mL Possible Toxicity: ??>80 ng/mL Based on [place] of Medicine recommendations Biotin supplements may cause clinically significant interference for this test assay. ??If interference is suspected, it is strongly recommended that biotin is discontinued for at least one week prior to retesting. Karuna ALBERT SEND OUTS Performing Organization Address [facility] Co de Phone Number [facility] [address] [place] [address], * (ABNORMAL) CBC W PLT NO DIFF (03/26/2024 7:10 AM CDT) WHITE BLOOD COUNT 7.0 4.5 - 11.0 thou/cu mm 03/26/2024 7:14 AM CDT [facility] RED BLOOD COUNT 4.41 4.30 - 5.90 mil/cu mm 03/26/2024 7:14 AM CDT [facility] HEMOGLOBIN 13.6 13.5 - 17.5 g/dL 03/26/2024 7:14 AM CDT [facility] HEMATOCRIT 39.3 37.0 - 53.0 % 03/26/2024 7:14 AM CDT [facility] MCV 89 80 - 100 fL 03/26/2024 7:14 AM CDT [facility] MCH 30.8 26.0 - 34.0 pg 03/26/2024 7:14 AM CDT [facility] MCHC 34.6 32.0 - 36.0 g/dL 03/26/2024 7:14 AM CDT [facility] RDW 14.4 11.5 - 15.5 % 03/26/2024 7:14 AM CDT [facility] PLATELET COUNT 220 140 - 440 thou/cu mm 03/26/2024 7:14 AM CDT [facility] MPV 11.6(H) 6.5 - 11.0 fL 03/26/2024 7:14 AM CDT [facility] Blood BLOOD SPECIMEN / Unknown Venipuncture / Unknown 03/26/2024 7:10 AM CDT 03/26/2024 7:11 AM CDT Aimee Cade DO HEMATOLOGY Performing Organization Address City/State/[facility] Co de Phone Number [facility] [address] [place] [address], * US ABD AORTA SCREENING (12/10/2023 7:42 AM [employer]) Anatomical Region Laterality Modality Abdomen, AORTA Ultrasound 12/10/2023 6:55 AM [employer] Narrative 12/10/2023 9:48 AM [employer] VASCULAR ULTRASOUND REPORT MARISABEL REAGAN Accession#: ?? [id number] : ?1960 ??Study Date: ?? 12/10/2023 6:55:25 AM Age: ?63 years ?? Tech: ? CSH/STEVENK Gender: M ?Referring MD: HUBER MARTINEZ Site: [facility] Study performed: ?Aorta Indication for study: AAA screening. Study Quality: ?Good TECHNIQUE: The abdominal aorta and iliac arteries were examined with duplex ultrasound, color-flow and spectral Doppler. Bypass grafts and/or stents if present are evaluated per exam protocol. Vessel size, peak systolic velocity (PSV) and velocity ratios if applicable, were obtained and documented at sites per exam protocol. IMPRESSION: 1. No evidence of abdominal aortic aneurysm. 2. No common iliac artery stenosis or aneurysm bilaterally. COMPARISON: No prior study available for comparison. FINDINGS: There is no evidence of abdominal aortic aneurysm. No common iliac artery stenosis or aneurysm bilaterally. MEASUREMENTS: + +--------+-------+ +---------+ ? TRV (cm) AP (cm) PSV (cm/s) Phasicity + +--------+-------+ +---------+ Suprarenal aorta ?2.20 ?? 2.10 ? 108 ? + +--------+-------+ +---------+ Juxtarenal aorta ?2.00 ?? 2.20 ? 126 ? + +--------+-------+ +---------+ Infrarenal aorta ?1.90 ?? 1.80 ? 132 ? + +--------+-------+ +---------+ Right common iliac ??1.30 ?? 1.30 ? 186 ? + +--------+-------+ +---------+ Left common iliac ??1.20 ?? 1.30 ? 115 ? + +--------+-------+ +---------+ Gerardo Tena MD. Electronically signed on 12/10/2023 9:48:18 AM This study was performed and interpreted by a service accredited by the Intersocietal Accreditation Commission (IAC/Vascular), www.intersocietal.org/vascular Report generated by [employer]. ??Final ?? Procedure Note Gerardo Tena MD - 12/10/2023 VASCULAR ULTRASOUND REPORT MARISABEL REAGAN : 1960 Study Date: 12/10/2023 6:55:25 AM Age: 63 years Tech: [employer]ANSON/KELLY Gender: M Referring MD: HUBER MARTINEZ Site: [facility] Study performed: Aorta Indication for study: AAA screening. Study Quality: Good TECHNIQUE: The abdominal aorta and iliac arteries were examined with duplexultrasound, color-flow and spectral Doppler. Bypass grafts and/or stentsif present are evaluated per exam protocol. Vessel size, peak systolicvelocity (PSV) and velocity ratios if applicable, were obtained anddocumented at sites per exam protocol. IMPRESSION: 1. No evidence of abdominal aortic aneurysm. 2. No common iliac artery stenosis or aneurysm bilaterally. COMPARISON: No prior study available for comparison. FINDINGS: There is no evidence of abdominal aortic aneurysm. No common iliac arterystenosis or aneurysm bilaterally. MEASUREMENTS: + +--------+-------+ +---------+ TRV (cm) AP (cm) PSV (cm/s) Phasicity + +--------+-------+ +---------+ Suprarenal aorta 2.20 2.10 108 + +--------+-------+ +---------+ Juxtarenal aorta 2.00 2.20 126 + +--------+-------+ +---------+ Infrarenal aorta 1.90 1.80 132 + +--------+-------+ +---------+ Right common iliac 1.30 1.30 186 + +--------+-------+ +---------+ Left common iliac 1.20 1.30 115 + +--------+-------+ +---------+ Gerardo Tena MD. Electronically signed on 12/10/2023 9:48:18 AM This study was performed and interpreted by a service accredited by theIntersocietal Accreditation Commission (IAC/Vascular),www.intersocietal.org/vascular Report generated by [employer]. Final Huber Martinez MD [place] * COLONOSCOPY (01/14/2023 2:29 PM [employer]) 01/14/2023 2:29 PM [employer] Narrative Transcriptions Mason Owen MD - 01/14/2023 4:21 PM CST Patient Name: Marisabel Reagan Procedure Date: 01/14/2023 Gender: Male Date of : 1960 Admit Type: Outpatient Procedure: Colonoscopy Proceduralist: Mason Owen MD , Janet Peralta (Nurse), Marisol Bauer (Nurse) Referring MD: Billy Mehta Indications/Pre-Op Diagnosis: Evaluation of unexplained GI bleeding presenting with Hematochezia, Lastcolonoscopy: January 2014 Medications: Fentanyl 200 micrograms IV, Midazolam 4 mgIV, The level of sedation administered wasmoderate Procedure Description: The patient had risks, benefits and alternatives explained to andgave informed consent. The patient had a stable cardiopulmonary status and judged an adequate candidate for conscious sedation. The PCF-H190L [id number] was passed through the anus and advanced to 8cm into the ileum. The colonoscopy was performed without difficulty. The patient tolerated the procedure well. The quality of the bowel preparation was good. The terminal ileum, ileocecal valve,appendiceal orifice, and rectum were photographed. Estimated Blood Loss & Specimen: Estimated blood loss: none. Specimen collected - Yes and sent to Laboratory Findings: The perianal and digital rectal examinations were normal. Scattered small and large-mouthed diverticula were found in thesigmoid colon and descending colon. The colon (entire examined portion) was moderately tortuous. A moderate amount of semi-liquid stool was found in the ascendingcolon and in the cecum, interfering with visualization. Lavage of the areawas performed using a large amount of sterile water, resulting inclearance with good visualization. Non-bleeding internal hemorrhoids were found. The hemorrhoids weresmall. Impressions/Post-Op Diagnosis: - Moderate diverticulosis in the sigmoid colon and in the descending colon. - Tortuous colon. - Stool in the ascending colon and in the cecum. - Non-bleeding internal hemorrhoids. - No specimens collected. Recommendation: - Patient has a contact number available for emergencies. The signsand symptoms of potential delayed complications were discussed with the patient. Return to normal activities tomorrow. Written discharge instructions were provided to the patient. - Resume previous diet. - Continue present medications. - Repeat colonoscopy in 10 years for screening purposes. - Use original regular Metamucil one teaspoon PO BID for 1 year. Moderate Sedation: A time out was performed before the procedure. Moderate (conscious) sedation was administered by the endoscopy nurse and supervised bythe endoscopist. The following parameters were monitored: oxygensaturation, heart rate, blood pressure, EKG, CO2, respiratory rate, adequacy of pulmonary ventilation and reponse to care. Please refer to the patient's medical record flowsheets and nursing notes for moderate sedation details. Total physician intraservice time was 35 minutes. Mason Owen MD 01/14/2023 4:21:03 PM This report has been signed electronically. Note Initiated On: 01/14/2023 2:29 PM Procedure Code(s): --- Professional --- 53749, Colonoscopy, flexible; diagnostic, including collection of specimen(s) bybrushing or washing, when performed (separateprocedure) Diagnosis Code(s): --- Professional --- K64.8, Other hemorrhoids K92.1, Melena (includes Hematochezia) K57.30, Diverticulosis of large intestine without perforation or abscess withoutbleeding Q43.8, Other specified congenitalmalformations of intestine CPT copyright 2020 [employer]. All rights reserved. The codes documented in this report are preliminary and upon certified medical coder reviewmay be revised to meet current compliance requirements. Scope In: 3:32:33 PM Scope Withdrawal Time 0 hours 10 minutes 45 seconds Scope Out: 4:05:36 PM Mason Owen MD PROCEDURE ORD * ANTI HCV (04/20/2020 4:08 PM CDT) HEPATITIS C ANTIBODY Non-React elvin Non-React elvin 04/24/2020 7:56 PM CDT [facility] Comment:Antibodies to HCV no t detected; does not exclude the possibility of exposure to HCV. Blood BLOOD SPECIMEN / Unknown Extra Tube / Unknown 04/20/2020 4:08 PM CDT 04/20/2020 4:19 PM CDT Billy Mehta MD [facility] [address] [place] [address], * ANTI HIV 1/2 (04/20/2020 4:08 PM CDT) HIV-1/HIV-2 ANTIBODY Non-Reacti ve Non-Reacti ve 04/24/2020 7:53 PM CDT [facility] Comment:HIV-1 p24 and HIV-1/ HIV-2 Ab not detected. Blood BLOOD SPECIMEN / Unknown Extra Tube / Unknown 04/20/2020 4:08 PM CDT 04/20/2020 4:19 PM CDT Billy Mehta MD SEND OUTS [facility] [address] [place] [address], from Last 3 Months or Most Recently Relevant to Health Maintenance Advance Directives * Full Code (Latest Code Status on File) Date Activated Date Inactivated Comments 12/19/2023 1:26 PM 12/19/2023 8:39 PM Question Answer Comments Code Status Discussion: Reviewed Preferences * Full Code Date Activated Date Inactivated Comments 03/08/2021 8:31 AM 03/08/2021 2:59 PM Question Answer Comments Code Status Discussion: Not Discussed * Full Code Date Activated Date Inactivated Comments 04/20/2020 7:01 PM 04/21/2020 3:05 PM * Full Code Date Activated Date Inactivated Comments 06/03/2008 12:50 AM 06/04/2008 4:55 PM Care Teams Clinical Exercise Specialist Relationship Specialty Start Date End Date Aimee Cade DO [address] [place] [address] PCP - General Family Practice 11/13/22 Mason Owen MD [address] [place] [address] Gastroenterology Gastroenterology 01/16/12 [place] [address] [place] [address] Consulting Physician Cardiovascular Disease 07/19/20 Yessica Zelaya NP [address] [place] [address] Consulting Physician Cardiology - Electrophysiology 12/24/21 Ciro Funez MD [address] [place] [address] Consulting Physician Cardiology - Electrophysiology 11/24/23
--- OUTSIDE RECORDS SUMMARY | 2024-05-21 08:42 | XMS_ITS | Continuity of Care Document ---
Author Organization Z [facility] Address [address] [place] [address] Phone Care Team Providers Care Shopper'S Aide Name Role Phone Unavailable Unavailable Unavailable Procedures Procedure Date Office/outpatient visit,[facility] 2010 X-ray exam of total spine Advance Directives Directive Yes / No Effective Date File Name No Information Encounters Encounter Description Practice Location Reason(s) For Visit Diagnoses Date Provider Providers Copied on Encounter Z [facility] [place], [address] [place] [address], [facility], tel:[phone] [facility] [place] No Information 7 1 No Information Office/outpat ient visit,[facility], [facility] [place], [address], [facility], tel:[phone] [place] [facility] [place] No Information [address] [facility] [place], [address], [id number], . tel:[phone] Family History Family Member Type Diagnosis Age At Onset No Information Payers Payer name Insurance type Covered constitution party ID Joycelyn vega(s) [employer] [id number] Social History Type Description Quantity Date Captured Comments Sex Male Smoking Status No Information Chief Complaint And Reason For Visit No Information Reason For Referral Reason For Referral No Information History Of Present Illness Encounter Date Complaint History Of Prese nt Illness No Information Functional Status Date Functional Assessmen t No Information Instructions Date Instruction Additional Infor mation No Information Assessments Type Assessment Date No Information Patient Care Teams Name Effective Dates (start - stop) Status Members No Information
--- NOTE | 2024-05-21 09:00 | CRLHL7_ITS ---
For Patients: As a result of the Century Cures Act, medical imaging exams and procedure reports are released immediately into your electronic medical record. You may view this report before your referring provider. If you have questions, please contact your health care provider. Indication: Bronchiectasis Technique: High-resolution noncontrast CT chest with supine inspiration/expiration images along with prone inspiration Please note that all CT scans at this facility use dose modulation, iterative reconstruction, and/or weight-based dosing when appropriate to reduce radiation dose to as low as reasonably achievable. Comparison: None Findings: Nonobstructing calculus within the mid left kidney measures 3 millimeters. Adrenal glands are normal. Spleen is unremarkable. Normal visualized pancreas, gallbladder and liver with an incidental subcentimeter cyst in the left hepatic lobe. No hiatal hernia. No mediastinal, hilar or axillary lymph node. No thoracic inlet lesion. Bronchiectasis is present within the left lower lobe. No peripheral fibrotic change or honeycombing. No airspace disease, pulmonary edema or pleural effusion. The small nodular density is present within the left lateral lung base measuring 4.7 millimeters. Small nodule within the right middle lobe is also present measuring 4.4 millimeters. Mild chronic wedging of T9. Mild diffuse air trapping noted. Impression: Left lower lobe bronchiectasis. Mild diffuse air trapping. No peripheral fibrosis. Small bilateral pulmonary nodules. Please note that all CT scans at this facility use dose modulation, iterative reconstruction, and/or weight-based dosing when appropriate to reduce radiation dose to as low as reasonably achievable. Dictated by Igor Ibanez MD @ 05/21/2024 10:09:25 AM (Electronically Signed)
== END 2024-05-21 08:37 | disposition home or self-care (01) ==
LOC: CT 08:40
PROVIDERS: PCP Family Medicine; Visit Provider Internal Medicine
DX: J47.9 Bronchiectasis, uncomplicated (principal); R91.8 Other nonspecific abnormal finding of lung field; K86.89 Other specified diseases of pancreas; J06.9 Acute upper respiratory infection, unspecified; R05.9 Cough, unspecified; R06.00 Dyspnea, unspecified
CPT/HCPCS: 71250

== ENCOUNTER 2024-07-22 10:30 | Outpatient (RCR) | payer MEDICARE, BC, SELFPAY | END 2024-11-19 23:59 | disposition home or self-care (01) | PROVIDERS: PCP Family Medicine; Visit Provider Family Medicine | DX: F07.81 Postconcussional syndrome (principal); Z74.09 Other reduced mobility; R26.81 Unsteadiness on feet; R29.898 Other symptoms and signs involving the musculoskeletal system; Z51.89 Encounter for other specified aftercare | CPT/HCPCS: 97110; 97140; 97162; 97165; 97535 ==

== ENCOUNTER 2025-03-08 14:51 | Outpatient (CLI) | payer MEDICARE, BC, SELFPAY | END 2025-03-08 14:52 | disposition home or self-care (01) | LOC: INJ CL 14:53 | PROVIDERS: PCP Family Medicine; Visit Provider Family Medicine | DX: M17.11 Unilateral primary osteoarthritis, right knee (principal) | CPT/HCPCS: 64454 ==

== ENCOUNTER 2025-03-29 12:16 | Outpatient (CLI) | payer MEDICARE, BC, SELFPAY | END 2025-03-29 12:17 | disposition home or self-care (01) | LOC: INJ CL 12:16 | PROVIDERS: PCP Family Medicine; Visit Provider Family Medicine | DX: M17.11 Unilateral primary osteoarthritis, right knee (principal); M25.561 Pain in right knee | CPT/HCPCS: 64624; J2250; J3010 ==

== ENCOUNTER 2025-05-05 09:56 | Day surgery (SDC) | payer MEDICARE, BC, SELFPAY ==
[2025-05-05] VITALS (11 sets, daily range): BP systolic 107–128; BP diastolic 67–77; PULSE 60–71; RESP 14–16; TEMP 36.2–36.7; O2SAT 92–96; BMI 25.4
[2025-05-05] MEDS: LACTATED RINGERS 1000 ML 1,000 ML 100 ML IV (10:15)
[2025-05-05] MEDS: SODIUM CHLORIDE 0.9 % (FLUSH) 10 ML SYRINGE IVF (10:24)
[2025-05-05] MEDS: ACETAMINOPHEN 500 MG TABLET 1000 MG PO (10:52)
[2025-05-05] MEDS: OXYCODONE (CR) 10 MG TAB.ER.12H PO (10:52)
[2025-05-05] MEDS: CELECOXIB 200 MG CAPSULE PO (10:52)
[2025-05-05] MEDS: MIDAZOLAM HCL 1 MG/ML inj IVP (10:53)
[2025-05-05] MEDS: fentaNYL 100 MCG/2 ML inj IVP (10:53)
--- NOTE | 2025-05-05 10:54 | SUR.PREOP ---
TIME?OUT:?1050 PT/RN/MDA?VERIFICATION?OF?SURGICAL?SITE,?PROCEDURE,?AND?CONSENT OBTAINED?PRIOR?TO?INVASIVE?PROCEDURE.
--- NOTE | 2025-05-05 10:59 | P.ANES_ITS ---
Anesthesia Charges Start Date/Time Anesthesia Start Date: 05/05/25 Anesthesia Start Time: 11:00 Stop Date/Time Anesthesia Stop Date: 05/05/25 Anesthesia Stop Time: 12:32 Coding CPT Codes CPT Codes: ANESTH SURGERY OF SHOULDER - 80480 ([id number]) P3 - PATIENT W/SEVERE SYS DISEASE, QK - PRINCIPAL ACCOUNTS CLERK 2-4 CNCRNT ANES PROC, QX - CORRECTIONS CADET SVC W/ MD MED DIRECTION
--- NOTE | 2025-05-05 10:59 | W.PM.NB ---
Nerve Block Nerve Block Time Seen by Provider: 10:55 Date Seen: 05/05/25 Type of block requested by surgeon for post-operative analgesia: supraclavicular Side: right Time out performed: Yes Verification of patient name: Yes Verification of date of : Yes Site marking: site marked Name of person performing procedure: Chepe Continuous monitoring Was continuous monitoring of O2 sat, B/P, otr flatbed driver, recorded every 15 minutes?: Yes Procedure Checklist: sterile prep, needles and gloves Ultrasound guided. Images saved: Yes Medications given in 5ml increments after negative aspiration: Ropivicaine %: 0.5 mL: 20 Needle gauge: 22 Precedex (mcg): 25 Patient tolerated procedure well: Yes Block Charges Block Charge (with Pro Fee): Brachial Plexus Use of Ultrasound Machine for Block: Yes- US Guidance/pain block
--- NOTE | 2025-05-05 10:59 | W.ANESCHARGE ---
Anesthesia Charges Start Date/Time Anesthesia Start Date: 05/05/25 Anesthesia Start Time: 11:00 Stop Date/Time Anesthesia Stop Date: 05/05/25 Anesthesia Stop Time: 12:32 Coding CPT Codes CPT Codes: ANESTH SURGERY OF SHOULDER - 31015 ([id number]) P3 - PATIENT W/SEVERE SYS DISEASE, QK - SWEET DOUGH MIXER 2-4 CNCRNT ANES PROC, QX - SOLID TIRE TUBER MACHINE OPERATOR SVC W/ MD MED DIRECTION
[2025-05-05] MEDS: CEFAZOLIN 1 GM inj IVP (11:29)
[2025-05-05] MEDS: EPINEPHrine 1 MG in SODIUM CHLORIDE IRRIG SOLUTION 3,000 ML 9003 MG IRRIGATION (11:35)
--- NOTE | 2025-05-05 12:13 | P.ORPRC_ITS ---
Procedure Note Date of procedure: 05/05/25 Procedure: PREOPERATIVE DIAGNOSIS: Right shoulder subacromial bursitis, AC joint arthrosis, degenerative labral tearing POSTOPERATIVE DIAGNOSIS: Right shoulder subacromial bursitis, AC joint arthrosis, degenerative labral tearing NAME OF OPERATION: Right shoulder arthroscopic limited glenohumeral joint debridement, subacromial decompression, distal clavicle excision SURGEON: Agusto Ac MD TOOL AND DIE TECHNICIAN: Dacia Simons PA-C ANESTHESIA: Supraclavicular block plus general endotracheal ESTIMATED BLOOD LOSS: 5 mL COMPLICATIONS: None SPECIMENS: None DRAINS: None PREOPERATIVE ANTIBIOTICS: Ancef 2 grams INDICATIONS: The patient is a 64-year-old with a history of right shoulder pain secondary to the above diagnoses. Despite appropriate non operative management, they continue to have symptoms. Operative intervention was recommended. The risks, benefits and expected outcomes were discussed in detail. These included but were not limited to: Infection, bleeding, injury to blood vessel or nerve, venous thromboembolism. All questions were answered to their satisfaction. PROCEDURE: A supraclavicular block was placed by Anesthesia. General anesthesia was administered. The patient was placed in the high beach chair position. The right shoulder was prepped and draped in the usual sterile fashion. The glenohumeral joint was infiltrated with 20 mL of normal saline with epinephrine. The posterior portal was established, the arthroscope was introduced. The anterior portal was established, Diagnostic arthroscopy was performed with findings as follows: The biceps and biceps anchor are intact. The anterior, posterior and superior labrum show age-appropriate degenerative tearing. Articular surfaces on the humeral head, with the exception of the far posterior, inferior aspect of the head has a patch of grade 3 change, articular surface on the glenoid is normal. There are no loose bodies. The joint surface of the rotator cuff insertion is intact and pristine. Anterior, posterior and superior labrum was debrided with the shaver. The arthroscope was placed in the subacromial space, the lateral portal was established. There was a marked amount of subacromial/subdeltoid bursitis which was aggressively debrided with the shaver. The Arthrex [place] was used to dissect the acromion free. The CA ligament was recessed off the anterior acromion, the AC joint was exposed. The acromioplasty was performed with the bur in the posterior portal. The bur was then placed in the lateral portal and the lateral and anterior aspect of the acromion were resected. The undersurface of the distal clavicle was resected through the lateral portal. Finally, the bur was placed in the anterior portal and the remainder of the distal clavicle was resected for a total of 10 mm. The bursal surface of the rotator cuff was inspected and was found to be intact, with age-appropriate degenerative fraying. There is no high-grade partial- thickness or full-thickness tearing. Arthroscopic instruments were removed. Portals were closed with a 3-0 Monocryl in a subcuticular fashion. A dry dressing and sling were applied. Sponge and needle counts were correct x2. The patient tolerated the procedure well. There were no apparent complications. They were carefully transferred to the hospital bed and taken to the postanesthesia care unit in satisfactory condition. PLAN: The patient will be discharged to home. He may discontinue sling whenever he is comfortable. Use of the shoulder, without restriction. He can follow up in the office next week for a wound check and an AP and transscapular Y-view of the shoulder prior to being seen.
--- NOTE | 2025-05-05 12:34 | P.ANES_ITS ---
Anesthesia Charges Start Date/Time Anesthesia Start Date: 05/05/25 Anesthesia Start Time: 11:00 Stop Date/Time Anesthesia Stop Date: 05/05/25 Anesthesia Stop Time: 12:32 Coding CPT Codes CPT Codes: ANESTH SURGERY OF SHOULDER - 45292 ([id number]) QK - CERTIFIED CREDIT COUNSELOR 2-4 CNCRNT ANES PROC, QX - FILM REPRODUCER SVC W/ MD MED DIRECTION, P3 - PATIENT W/SEVERE SYS DISEASE
--- NOTE | 2025-05-05 12:34 | W.ANESCHARGE ---
Anesthesia Charges Start Date/Time Anesthesia Start Date: 05/05/25 Anesthesia Start Time: 11:00 Stop Date/Time Anesthesia Stop Date: 05/05/25 Anesthesia Stop Time: 12:32 Coding CPT Codes CPT Codes: ANESTH SURGERY OF SHOULDER - 40353 ([id number]) QK - OFFSHORE WIND TURBINE TECHNICIAN 2-4 CNCRNT ANES PROC, QX - CLINICAL LABORATORY SERVICE TEACHER SVC W/ MD MED DIRECTION, P3 - PATIENT W/SEVERE SYS DISEASE
== END 2025-05-05 14:00 | disposition home or self-care (01) ==
LOC: OR 09:57
PROVIDERS: PCP Family Medicine; Visit Provider Orthopaedic Surgery
PROC: (CPT 23412; principal; 2025-05-05 11:15)
DX: M75.51 Bursitis of right shoulder (principal); M19.011 Primary osteoarthritis, right shoulder; S43.431A Superior glenoid labrum lesion of right shoulder, initial encounter; G89.18 Other acute postprocedural pain
CPT/HCPCS: 29822; 29824; 29826; 01630; 64415; 76942; A9270; J0171; J0690; J1100; J2250; J2405; J2704; J2710; J2795; J3010; J7120

== ENCOUNTER 2025-06-09 09:30 | Outpatient (RCR) | payer MEDICARE, BC, SELFPAY ==
--- NOTE | 2025-05-17 11:25 | PT.OPE ---
PT [facility] Out[facility] Eval PT [facility] Outpatient Eval Start: 05/12/25 12:52 Freq: Status: Active Protocol: Document 05/12/25 12:53 BMS (Rec: 05/12/25 12:54 BMS [id number]) E-signed By Gabriella Goldstein PT Physical Therapy Outpatient Evaluation Insurance Information Recert Due Date 08/09/25 Insurance Name Medicare B Provider Fax Number internal Medical Diagnosis [id number] of R shoulder Treating Diagnosis R shoulder pain, weakness, stiffness R shoulder, loss ROM Referring MD Olimpia Simons, JULIO C, Team Osorio Subjective Subjective About year or so ago saw gregory after TBI (took an unintentional dive down stairs) Continue to have neck pain and shoulder, had neck injection week before has helped TAVAREZ Have migraines too, topomax helps control them, also have TIAs helps to control them Was at softpitch softball exhausted, turned on stairs and fell head first, launched self down 7 stairs. Hit R head and grabbed desk with right arm. Tried injection on shoulder, it didn?t help Elbow was minor hurt, if move arm reach back or up and supinate then shooting pains down from shoulder. Put up with it for a year, tried cortisone in shoulder then did MRI, said it needed to be cleaned out Take trazadine mm relaxant for helping sleep, gave me oxy but it aggrevates my ADHD Use ice it helps but not since yest. trouble sleep , sleep on R side with pillow under arm. Tried sleeping on back w pillow. reach over head, behind back, get wallet out, just barely reach top of head, have horses carried pail Friday wasn?t good, L ACL screws placed in 90s, 3-4 weeks ago had ablation in R knee bc bone on bone on medial. 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 Contraindications DC sling whenever comfortable. Use of shoulder without restrictions per order Olimpia Courtney PA-C 05/11/25 R handed hx depression, L knee ACL repair in distant past, TIAs, wishes to 'become 16 again' with a wink Therapy Limitations/ Vision Systems Review Objective Range of Motion shoulder AROM/PROM flex R 90/120 abduct 90/95 ER 55/60 IR behind back to lateral to low sacrum YASMEEN very painful with scap in neutral L shoulder AROM flex WNL, abduct 140, ER 70, IR T8 elbows, wrists WNL CSPINE rotatoin R=80, L =55 Strength shoulder not tested due to pain and surgery; remote pilot operator R= 82, 75, 60#; L = 90 85, 80# pinch R =25,23,21 #, L pinch 20, 19, 19# Palpation anterior portal incision raised scar with mod+ tenderness around entire GH and into arm, bicep and pec , UT, levator. Posture head forward, wide base, UE supported, trunk mild flex and kyphosis Assessment Assessment/ Patient is very pleasant 64 yo male referred s/p R Impression shoulder surgery 05/05/25. Per order dated 05/11/25 R shoulder arhroscopic limited GH joint debridement, subacromial decompression, distal clavicle excision. DC sling whenever comfortable. Use of shoulder without restrictions per order Olimpia Courtney PA-C. Patient reports R shoulder pain began ~ 1 year ago after taking an unintentional dive down 7 stairs and sustaining TBI. He was treated for TBI, some for neck and shoulder. Continues to have neck pain and shoulder, had neck injection week before surgery has helped TAVAREZ Have migraines too, topomax helps control them, also have hx TIAs? He did fail conservative management including exercises, injection and OTC meds, ice. Since surgery reports pain with all shoulder mobility away from body gautam in elevation, loss of ROM, weakness, pain and difficulty performing ADLs and sleeping. He will benefit from skilled physical therapy to restore ROM and functional strength as tolerated for return to prior level of function as very active adult whose hobbies include caring for horses, feeding them etc. Primary Functional all use of dominant arm gautam above 60 degrees elevation, Limitations decreased strength and pain limiting function, loss of ROM, weakness Plan of Care Rehabilitation Good Potential Physical Therapy 1) Pt demo independence with HEP and self care/home Goals management techniques for shoulder/elbow pain, increased ROM and strength for return to previous level of function. 2) Pt demo PROM/AAROM WFL for advancement to next stage of recovery/rehab. 3) Advance HEP as tolerated and instructed at return to MD and according to post-op protocol LTG meet 8-12 weeks 1)Pt demo ability to don/doff clothes including shirts and coats without increased pain. 2) Pt demonstrate ability to lift 10# without contortion or substitution patterns of UE or trunk for carrying gallon of milk etc. (if within MD restrictions ) 3) Pt demo ROM WNL combined flex, abduct and ER to perform grooming and hair brushing. 4) Pt report ability to sleep without waking from pain >2 nights per week in preferred position using appropriate positioning. 5) Pt demo ability to perform all grooming and hygiene tasks without modification or pain. Coordination/ Referral Source Communication With Treatment Plan/ Dry Needling,Electrical Stimulation,Heat,Ice/Cold/ Direct Interventions Vasopneumatic,Manual Therapy,Neuromuscular Re-ed,Self- Care/Home Management,Therapeutic Activities,Therapeutic Exercises,Ultrasound Frequency/Duration 1-2x/ week x 12 visits Patient Will Be Completion of LTG(s),Skills Plateau,Independent w/HEP, Discharged From Independently Progressing Therapy Evaluation Billing Untimed Code 25 Treatment Minutes Complexity Low Certification Information Initial 05/12/25 Certification Date Ending Certification 08/09/25 Date Provider Signature Yes Required Provider Signature POC & Medical Necessity Shows Agreement With Physician NPI Number Write NPI# Here Physician Comment/ : Change Physician Signature Please Sign/Date Here & Date Requested
== END 2025-08-15 10:35 | disposition home or self-care (01) ==
PROVIDERS: PCP Family Medicine; Visit Provider Physician Assistant
DX: Z48.89 Encounter for other specified surgical aftercare (principal); M25.511 Pain in right shoulder; Z51.89 Encounter for other specified aftercare
CPT/HCPCS: 97110; 97140; 97161

== ENCOUNTER 2025-07-05 08:32 | Outpatient (CLI) | payer MEDICARE, BC, SELFPAY | END 2025-07-05 08:33 | disposition home or self-care (01) | PROVIDERS: PCP Family Medicine; Visit Provider Family Medicine | DX: S49.82XA Other specified injuries of left shoulder and upper arm, initial encounter (principal); W03.XXXA Other fall on same level due to collision with another person, initial encounter; Y93.89 Activity, other specified; Y92.72 Chicken coop as the place of occurrence of the external cause | CPT/HCPCS: A0425; A0433 ==